=== PATIENT | male | born 2000 | race American Indian/Alaskan Native ===

== ENCOUNTER 2021-03-16 07:15 | Day surgery (SDC) | payer MEDICAID ==
[~2021-03-16 07:15] MED LIST: IOHEXOL 300 MG/ML 50ML IV ONE; WATER FOR IRRIG STERILE 2000 ML IR ONE
[2021-03-16] MEDS ORDERED: fentaNYL 100 MCG/2 ML INJ ONE ×2 (09:20→10:16)
[2021-03-16] MEDS ORDERED: propofoL 200 MG/20 ML VIAL IV ONE (09:20)
[2021-03-16] MEDS ORDERED: LIDOCAINE MPF (2%) 20 MG/1 ML VIAL 5 ML ONE (09:20)
[2021-03-16] MEDS ORDERED: LACTATED RINGERS 1,000 ML IV SCH ×2 (09:20→10:30)
--- NOTE | 2021-03-16 09:26 | Anesthesia Day of Surgery ---
Anesthesia Day of Surgery - Day of Surgery Patient Examined: Yes Patient H&P Reviewed: Yes Patient is NPO: Yes
--- NOTE | 2021-03-16 09:27 | Anesthesia Consultation ---
Anesthesia Consult and Med Hx Date of service: 03/16/21 - Airway Anesthetic Teeth Evaluation: Good ROM Head & Neck: Adequate Mental/Hyoid Distance: Adequate Mallampati Class: Class I Intubation Access Assessment: Good - Pre-Operative Health Status ASA Pre-Surgery Classification: ASA1 Proposed Anesthetic Plan: General - Pulmonary Hx Smoking: No Hx Sleep Apnea: No (WINDY PRE SCREEN NEGATIVE) - Cardiovascular System Hx Hypertension: No Hx Heart Attack/AMI: No - Central Nervous System Hx Seizures: No Hx Back Pain: Yes (OCC.) Hx Psychiatric Problems: No - Endocrine Hx End Stage Renal Disease: No (Had hydronephrosis) Hx Liver Disease: Yes (Cyst on liver found incidentally) - Hematic Hx Anemia: No Hx Sickle Cell Disease: No - Other Systems Hx Alcohol Use: No Hx Substance Use: No Hx Cancer: No
[2021-03-16] MEDS ORDERED: ceFAZolin/Water 2 GM/20 ML 2 GM/20 ML SYRINGE IV ONE (09:48)
[2021-03-16] MEDS ORDERED: HYDROmorphone 1 MG/1 ML INJ IV PRN ×2 (10:00→10:30)
[2021-03-16] MEDS ORDERED: MIDAZOLAM 2 MG/2 ML INJ IV NR (10:00)
[2021-03-16] MEDS ORDERED: WATER FOR IRRIG STERILE 2000 ML IR ONE (10:17)
[2021-03-16] MEDS ORDERED: IOHEXOL 300 MG/ML 50ML IV ONE (10:20)
[2021-03-16] MEDS ORDERED: ONDANSETRON 4 MG/2 ML INJ IV PRN (10:30)
--- NOTE | 2021-03-16 11:10 | Fluoroscopy Report ---
INTRAOPERATIVE FLUOROSCOPY: ABDOMEN INDICATION: Right ureteral obstruction. TECHNIQUE: Intraoperative spot images were obtained during the procedure. FINDINGS: Right retrograde urography demonstrates mild hydronephrosis with retention of contrast throughout the right renal collecting system and along the proximal third of the right ureter. A segment of nonfill ing along the middle third of the right ureter at the level of L4 is concerning for a stricture. Plea se see the procedural report for further details. Fluoroscopy Time: 1.1 minutes. Fluoroscopy Images: 5. Signer Name: Mingo Ibrahim MD Signed: 03/16/2021 11:05 AM Workstation Name: [id number]
[2021-03-16 12:22] VITALS: BP 132/76
--- NOTE | 2021-03-16 12:38 | Operative Report ---
DATE OF SURGERY: 03/16/2021 PREOPERATIVE DIAGNOSES: 1. Right ureteral obstruction. 2. Status post right ureteroureterostomy as a child. OPERATIVE PROCEDURES: Cystoscopy, right retrograde pyelogram. ATTENDING: Fernando Partida MD DRESS FINISHER: None. ANESTHESIA: General. ESTIMATED BLOOD LOSS: 5 mL. DRAINS: None. SPECIMENS: None. COMPLICATIONS: None. INDICATIONS FOR PROCEDURE: The patient is a 21-year-old man with a right mild to moderate hydronephrosis on imaging. He has a history of a right ureteroureterostomy as a child. A renal scan shows sluggish drainage of the right kidney. He presents today for a right retrograde pyelogram to anatomically delineate the right ureteral anatomy to determine the significance of the hydronephrosis. DESCRIPTION OF PROCEDURE IN DETAIL: After induction of suitable anesthesia and proper positioning and preparation in the dorsal lithotomy position, a cystoscope was used to enter the bladder under direct visualization. There were no bladder or urethral mucosal lesions. There was not a ureteral stricture. The patient's ureteral orifices were in their normal orthotopic position. The right ureteral orifice was identified and was cannulated with an open-ended Retro catheter. The Retro catheter was advanced and multiple retrograde pyelograms were performed to fully delineate the right ureter and collecting system. Some of the retrograde pyelogram showed that the patient had a narrowing of the right ureter at the junction of the proximal and mid ureter. It appeared that the ureter seemed to culminate down to a transition point that was narrowed. It was not a complete obstruction. It was a partial obstruction. We watched the right collecting system for a while and with multiple spot images, and the contrast did not drain very well at all. At the conclusion of the procedure, there was still the same degree of opacity with the contrast as there was at the beginning of the procedure, indicating that there was poor drainage. Preoperatively, the patient told me he did not wish to have a stent placed, so I did not place one. At this point, the procedure was concluded and the cystoscope was removed. The patient was then awakened from anesthesia and transported to the recovery room in stable condition. He tolerated the procedure well. PLAN: He will return to the office in 7 to 10 days to discuss options related to the findings intraoperatively today. TID: [id number] RECEIPT: [id number] CARLOS/JUDY/AMARAJ
--- NOTE | 2021-03-16 17:55 | Post Anesthesia Evaluation ---
- Post Anesthesia Evaluation Patient Participated: Yes Airway Patent: Yes Stable Respiratory Function: Yes Nausea/Vomiting: No Temp > 96.8F: Yes Pain Manageable: Yes Adequeate Hydration: Yes Anesthesia Complications: No Block Receding Appropriately: Not Applicable Patient on Ventilator: No
== END 2021-03-16 12:05 | disposition home or self-care (01) ==
LOC: OR 07:15 → EDSEX 10:45 → OR 12:05
PROVIDERS: ATTEND Urology
DX: N13.1 Hydronephrosis with ureteral stricture, not elsewhere classified (principal); Z20.822 Contact with and (suspected) exposure to COVID-19; Z79.899 Other long term (current) drug therapy; Z98.890 Other specified postprocedural states
CPT/HCPCS: 52005; 74420; C1758; J0690; J2250; J2704; J3010; J3490; J7120; Q9967; U0003

== ENCOUNTER 2021-04-27 06:12 | Day surgery (SDC) | payer MEDICAID ==
[2021-04-27] MEDS ORDERED: BACTERIOSTATIC SODIUM CHLORIDE 0.9% 30 ML VIAL INFILTRATI ONE (06:59)
[2021-04-27] MEDS ORDERED: LACTATED RINGERS 1,000 ML IV SCH (07:00)
[2021-04-27] MEDS ORDERED: propofoL 200 MG/20 ML VIAL IV ONE ×2 (07:21→08:15)
[2021-04-27] MEDS ORDERED: LIDOCAINE MPF (2%) 20 MG/1 ML VIAL 5 ML ONE (07:21)
[2021-04-27] MEDS ORDERED: HYDROmorphone 1 MG/1 ML INJ IV PRN ×2 (07:23)
[2021-04-27] MEDS ORDERED: ONDANSETRON 4 MG/2 ML INJ IV PRN (07:23)
[2021-04-27] MEDS ORDERED: ACETAMINOPHEN 500 MG TAB PO NR (07:24)
[2021-04-27] MEDS ORDERED: MAGNESIUM OXIDE 400 MG TAB PO NR (07:24)
--- NOTE | 2021-04-27 07:26 | Anesthesia Day of Surgery ---
Anesthesia Day of Surgery - Day of Surgery Patient Examined: Yes Patient H&P Reviewed: Yes Patient is NPO: Yes
--- NOTE | 2021-04-27 07:27 | Anesthesia Consultation ---
Anesthesia Consult and Med Hx Date of service: 04/27/21 - Airway Anesthetic Teeth Evaluation: Good ROM Head & Neck: Adequate Mental/Hyoid Distance: Adequate Mallampati Class: Class II Intubation Access Assessment: Good - Pre-Operative Health Status ASA Pre-Surgery Classification: ASA1 Proposed Anesthetic Plan: General - Pulmonary Hx Smoking: No Hx Sleep Apnea: No (WINDY PRE SCREEN NEGATIVE) - Cardiovascular System Hx Hypertension: No Hx Heart Attack/AMI: No - Central Nervous System Hx Seizures: No Hx Back Pain: Yes (OCC.) Hx Psychiatric Problems: No - Endocrine Hx End Stage Renal Disease: No (Had hydronephrosis) Hx Liver Disease: Yes (Cyst on liver found incidentally) - Hematic Hx Anemia: No Hx Sickle Cell Disease: No - Other Systems Hx Alcohol Use: Yes (OCCASSIONALLY) Hx Substance Use: No Hx Cancer: No
[2021-04-27] MEDS ORDERED: ACETAMINOPHEN 500 MG TAB ONE (07:30)
[2021-04-27] MEDS ORDERED: CELECOXIB 200 MG CAP ONE (07:31)
[2021-04-27] MEDS ORDERED: MAGNESIUM OXIDE 400 MG TAB PO ONE (07:31)
[2021-04-27] MEDS ORDERED: ceFAZolin/Water 2 GM/20 ML 2 GM/20 ML SYRINGE IV ONE (07:55)
[2021-04-27] MEDS ORDERED: ceFAZolin/STERILE WATER 2 GM/20 ML SYRINGE IV NR (08:00)
[2021-04-27] MEDS ORDERED: CELECOXIB 200 MG CAP PO NR (08:00)
[2021-04-27] MEDS ORDERED: fentaNYL 100 MCG/2 ML INJ ONE (08:04)
[2021-04-27] MEDS ORDERED: MIDAZOLAM 2 MG/2 ML INJ ONE (08:16)
[2021-04-27] MEDS ORDERED: dexAMETHasone 20 MG/5 ML VIAL ONE (08:21)
[2021-04-27] MEDS ORDERED: KETOROLAC 30 MG/1 ML INJ ONE (08:21)
[2021-04-27] MEDS ORDERED: ONDANSETRON 4 MG/2 ML INJ ONE (08:21)
[2021-04-27] MEDS ORDERED: IOHEXOL 300 MG/ML 50ML IV ONE (08:32)
--- NOTE | 2021-04-27 09:05 | Operative Report ---
DATE OF SURGERY: 04/27/2021 DATE OF PROCEDURE: 04/27/2021 PREOPERATIVE DIAGNOSES: 1. Right hydronephrosis. 2. History of right ureteral stricture, status post ureteroureterostomy. 3. Recurrent right proximal stricture. POSTOPERATIVE DIAGNOSES: 1. Right hydronephrosis. 2. History of right ureteral stricture, status post ureteroureterostomy. 3. Recurrent right proximal stricture. PROCEDURES: Cystoscopy, right ureteral balloon dilation, insertion of right double-J stent. ATTENDING SURGEON: Fernando Partida MD UI LEAD DEVELOPER: None. ANESTHESIA: General. ESTIMATED BLOOD LOSS: 5 mL DRAINS: A 7 x 26 right double-J stent. SPECIMENS: None. COMPLICATIONS: None. INDICATIONS FOR PROCEDURE: The patient is a 21-year-old man with a history of childhood right ureteral stricture, status post repair. He has developed a recurrent short stricture at the site of repair with hydronephrosis. He presents today for balloon dilation. DESCRIPTION OF PROCEDURE IN DETAIL: After induction of suitable anesthesia and proper positioning and preparation in the dorsal lithotomy position, a cystoscope was used to enter the bladder under direct visualization. The right ureteral orifice was identified and an open-ended retrograde catheter was used to cannulate the right ureter. A right retrograde pyelogram was taken to show the right ureteral stricture. He has a short stricture in the proximal ureter. A wire was inserted through the retrograde catheter into the kidney. A balloon dilator was then threaded over the wire with the balloon transversing the stricture. The balloon was then inflated and remained in place for approximately 2 minutes. It was deflated and then a sequential, stage repeat dilation was performed across the stricture. There was a good waist of the balloon and it did transverse very well of the stricture. A 7 x 26 stent was then placed under direct visualization. There was a good positioning proximally and distally. The bladder was drained and the cystoscope was then removed. The patient was then awakened from anesthesia and transferred to the recovery room in stable condition. He tolerated this procedure well. POSTOPERATIVE PLAN: He will return for an office visit in approximately 2 weeks. We will leave the stent in place for approximately 6-8 weeks. TID: [id number] RECEIPT: [id number] CARLOS/LATOYA
--- NOTE | 2021-04-27 09:33 | Fluoroscopy Report ---
FLUOROSCOPY RETROGRADE UROGRAPHY FLUOROSCOPY URETER/NEPHROSTOMY DILATATION RIGHT INDICATION: RT URETER STRICTURE. COMPARISON: 03/16/2021 IMPRESSION: 1 minute and 50 seconds of fluoroscopy time was provided by radiology during right urete ral stricture dilatation and right ureteral stent placement. 6 fluoroscopic images are presented dem onstrating balloon dilatation of the mid right ureteral stricture. A right ureteral stent was placed with good drainage of the collecting system on the final image. Please correlate with the procedural report as needed. Signer Name: Joseph Reyes Jr, MD Signed: 04/27/2021 9:28 AM Workstation Name: [id number]
[2021-04-27 10:13] VITALS: BP 130/77
== END 2021-04-27 10:40 | disposition home or self-care (01) ==
LOC: OR 06:12
PROVIDERS: ATTEND Urology
DX: N13.1 Hydronephrosis with ureteral stricture, not elsewhere classified (principal); Z20.822 Contact with and (suspected) exposure to COVID-19; K76.9 Liver disease, unspecified; Z79.899 Other long term (current) drug therapy; Z98.890 Other specified postprocedural states
CPT/HCPCS: 52332; 52341; 74420; 74485; C1726; C1769; C2617; J0690; J1100; J1885; J2250; J2405; J2704; J3010; J3490; J7120; Q9967; U0003

== ENCOUNTER 2021-06-22 08:25 | Day surgery (SDC) | payer MEDICAID ==
[~2021-06-22 08:25] MED LIST changes: -IOHEXOL 300 MG/ML 50ML IV ONE; +LACTATED RINGERS 1,000 ML IV SCH; +MIDAZOLAM 2 MG/2 ML INJ IV NR; -WATER FOR IRRIG STERILE 2000 ML IR ONE
--- NOTE | 2021-06-22 09:22 | Anesthesia Consultation ---
Anesthesia Consult and Med Hx Date of service: 06/22/21 - Airway Anesthetic Teeth Evaluation: Good ROM Head & Neck: Adequate Mental/Hyoid Distance: Adequate Mallampati Class: Class II Intubation Access Assessment: Probably Good (previous LMA 5) - Pre-Operative Health Status ASA Pre-Surgery Classification: ASA1 Proposed Anesthetic Plan: General - Pulmonary Hx Smoking: No Hx Respiratory Symptoms: No - Cardiovascular System Hx Hypertension: No - Central Nervous System CVA: No - Endocrine Hx Renal Disease: No Hx Liver Disease: No Hx Insulin Dependent Diabetes: No Hx Non-Insulin Dependent Diabetes: No Hx Thyroid Disease: No - Hematic Hx Anemia: No Hx Sickle Cell Disease: No - Other Systems Hx Obesity: Yes (BMI 33) - Additional Comments Anesthesia Medical History Comments: No hx anesthetic complications.
--- NOTE | 2021-06-22 09:23 | Anesthesia Day of Surgery ---
Anesthesia Day of Surgery - Day of Surgery Patient Examined: Yes Patient H&P Reviewed: Yes Patient is NPO: Yes
[2021-06-22] MEDS ORDERED: oxyCODONE /ACETAMINOPHEN 5-325MG TAB PO PRN (10:00)
[2021-06-22] MEDS ORDERED: HYDROmorphone 1 MG/1 ML INJ IV PRN (10:00)
[2021-06-22] MEDS ORDERED: ceFAZolin/STERILE WATER 2 GM/20 ML SYRINGE IV NR (10:30)
[2021-06-22] MEDS ORDERED: ceFAZolin/Water 2 GM/20 ML 2 GM/20 ML SYRINGE IV ONE (10:55)
[2021-06-22] MEDS ORDERED: KETAMINE/STERILE WATER 50 MG/ML SYRINGE ONE (11:10)
[2021-06-22] MEDS ORDERED: MIDAZOLAM 2 MG/2 ML INJ ONE (11:10)
[2021-06-22] MEDS ORDERED: GLYCOPYRROLATE 0.4 MG/2 ML INJ ONE (11:10)
[2021-06-22] MEDS ORDERED: propofoL 200 MG/20 ML VIAL IV ONE (11:11)
[2021-06-22] MEDS ORDERED: KETOROLAC 30 MG/1 ML INJ ONE (11:22)
[2021-06-22] MEDS ORDERED: ONDANSETRON 4 MG/2 ML INJ ONE (11:22)
--- NOTE | 2021-06-22 11:34 | Operative Report ---
DATE OF SURGERY: 06/22/2021 TIME: Approximately 11:00 a.m. PREOPERATIVE DIAGNOSES: Indwelling right double-J stent secondary to 4 hydronephroses, status post ureteral dilatation. POSTOPERATIVE DIAGNOSES: Indwelling right double-J stent secondary to 4 hydronephroses, status post ureteral dilatation. OPERATIVE PROCEDURES: Cystoscopy, removal of right double-J stent. ATTENDING: Fernando Partida MD BALLISTIC EXPERT: None. ANESTHESIA: Monitored anesthesia care. SPECIMENS: Right double-J stent, gross only. DRAINS: None. COMPLICATIONS: None. INDICATIONS FOR PROCEDURE: The patient is a 21-year-old man with right hydronephrosis secondary to a right proximal ureteral stricture. He underwent a right balloon dilation. He returns today for removal of his right indwelling double-J stent. DESCRIPTION OF PROCEDURE IN DETAIL: After the induction of suitable sedation, the patient was positioned and prepared in the supine position. A flexible cystoscope was used to enter the bladder under direct visualization. The right double-J stent was visualized and a stent grasper was inserted through the flexible cystoscope and grabbed the double-J stent. The double-J stent was removed with the scope intact and in total. The patient was then awakened from sedation and transferred to the recovery room in stable condition. He tolerated the procedure well. He will return in approximately 1 month for routine followup visit. TID: [id number] RECEIPT: [id number] CARLOS/GEORGES
[2021-06-22 14:02] VITALS: BP 126/70
--- NOTE | 2021-06-22 14:25 | Post Anesthesia Evaluation ---
- Post Anesthesia Evaluation Patient Participated: Yes Airway Patent: Yes Stable Respiratory Function: Yes Nausea/Vomiting: No Temp > 96.8F: Yes Pain Manageable: Yes Adequeate Hydration: Yes Anesthesia Complications: No
== END 2021-06-22 13:15 | disposition home or self-care (01) ==
LOC: OR 08:25
PROVIDERS: ATTEND Urology
DX: Z46.6 Encounter for fitting and adjustment of urinary device (principal); T83.192A Other mechanical complication of indwelling ureteral stent, initial encounter; E66.9 Obesity, unspecified; Z79.899 Other long term (current) drug therapy; Z87.440 Personal history of urinary (tract) infections; Z72.89 Other problems related to lifestyle; Z98.890 Other specified postprocedural states; Y82.8 Other medical devices associated with adverse incidents; Y92.89 Other specified places as the place of occurrence of the external cause
CPT/HCPCS: 52310; C1769; J0690; J1815; J1885; J2250; J2405; J2704; J3490; J7120

== ENCOUNTER 2021-10-10 23:00 | Emergency (ER) | payer MEDICAID | END 2021-10-10 23:05 | disposition left against medical advice (07) | LOC: ED 23:00 | DX: H91.90 Unspecified hearing loss, unspecified ear (principal); Z53.21 Procedure and treatment not carried out due to patient leaving prior to being seen by health care provider ==